=== PATIENT | female | born 1995 | race Caucasian/White ===

== ENCOUNTER 2019-07-24 11:40 | Observation (INO) | payer OTHER ==
[~2019-07-24] VITALS: Ht 165.1 cm; Wt 99.8 kg
[2019-07-24] MEDS ORDERED: LR 1,000 ML IV SCH (12:11)
[2019-07-24] MEDS ORDERED: MORPHINE SULFATE 10 MG/ML VIAL IVP PRN (12:15)
[2019-07-24] MEDS: TERBUTALINE SULFATE 1 MG/ML VIAL SUBCUT PRN ×2 (12:21→12:50)
[2019-07-24 13:33] LABS: BILIRUBIN,URINE NEGATIVE (NEGATIVE); BLOOD, URINE NEGATIVE (NEGATIVE); CLARITY/URINE SL CLOUDY (CLEAR); COLOR,URINE YELLOW (YELLOW); GLUCOSE,URINE NEGATIVE (NEGATIVE); KETONES,URINE NEGATIVE (NEGATIVE); LEUKOCYTE ESTERASE ,URINE 1+ (NEGATIVE); NITRITE, URINE NEGATIVE (NEGATIVE); PH,URINE 7.5 (5.0-8.0); PROTEIN URINE NEGATIVE (NEGATIVE); UROBILINOGEN,URINE 0.2 (0.2-1.0)
[2019-07-24 13:37] LABS: BACTERIA,URINE FEW /HPF (None Seen); RBC,URINE 0-3 /HPF (0-3); URINE AMORPHOUS PHOSPHATES 2+ /HPF (None Seen)
[2019-07-24] MEDS: NIFEdipine (O.B. USE ONLY) 10 MG CAPSULE PO SCH ×3 (14:29→15:10)
[2019-07-24] MEDS ORDERED: BETAMET ACET/BETAMET NA PH 30 MG/5 ML VIAL IM ONE ×2 (16:45→16:53)
[2019-07-24] MEDS ORDERED: TERBUTALINE SULFATE 1 MG/ML VIAL SUBCUT ONE (17:34)
[2019-07-24] MEDS ORDERED: NIFEdipine (O.B. USE ONLY) 10 MG CAPSULE PO SCH (19:30)
== END 2019-07-24 17:35 | disposition short-term general hospital (02) ==
LOC: SPU 11:40
PROVIDERS: ADMIT Obstetrics & Gynecology; ATTEND Obstetrics & Gynecology
DX: O26.893 Other specified pregnancy related conditions, third trimester (principal); R19.7 Diarrhea, unspecified; R11.0 Nausea; R10.9 Unspecified abdominal pain; Z3A.32 32 weeks gestation of pregnancy
CPT/HCPCS: 81000; 81002; 96361; 96372; 96374; G0378; J0702; J2270; J3105; J7120

== ENCOUNTER 2019-08-28 16:35 | Observation (INO) | payer OTHER ==
[~2019-08-28] VITALS: Ht 165.1 cm; Wt 100.7 kg
[2019-08-28] MEDS ORDERED: LR 1,000 ML IV SCH (18:22)
[2019-08-28] MEDS ORDERED: ACETAMINOPHEN 325 MG TABLET PO PRN (20:30)
[2019-08-28] MEDS ORDERED: TERBUTALINE SULFATE 1 MG/ML VIAL SUBCUT ONE (20:30)
[2019-08-28] MEDS ORDERED: TERBUTALINE SULFATE 1 MG/ML VIAL ONE (20:57)
== END 2019-08-28 21:29 | disposition home or self-care (01) ==
LOC: SPU 16:35
PROVIDERS: ADMIT Obstetrics & Gynecology; ATTEND Obstetrics & Gynecology
DX: O62.9 Abnormality of forces of labor, unspecified (principal); Z3A.37 37 weeks gestation of pregnancy
CPT/HCPCS: 81002; 96372; G0378; J3105; J7120; 59899